=== PATIENT | female | born 1975 | race American Indian/Alaskan Native ===

== ENCOUNTER 2017-12-22 16:33 | Emergency (ER) | payer MEDICAID, OTHER ==
[2017-12-22 17:01] VITALS: RESP 18; TEMP 98.7; O2SAT 99; BMI 32.9
[2017-12-22] MEDS ORDERED: Oxycodone/Acetaminophen 5/325 mg Tab PO STA (17:42)
--- NOTE | 2017-12-22 17:49 | ED PDOC ---
Arrival/HPI - General Chief Complaint: Dental Pain Time Seen by Provider: 12/22/17 17:38 Historian: Patient - History of Present Illness Narrative History of Present Illness (Text): 12/22/17 17:45 Estefani Churchill is a 42 year old male, whose past medical history includes heavy smoking, poor dentitions, who presents to the Emergency department complaining of progressive right upper tooth pain radiating to the right ear over the last 3 days. Patient notes facial swelling over the last 24 hours with severe right dental pain/face pain. Patient states she tried taking Aleve, Motrin, and Tylenol with minimal relief. Patient took her girlfriend's percocet and found some relief. Patient has an appointment with a dentist soon but hasn't had a chance to go, will go as soon as she can (due to her lack of insurance). Patient denies any fevers, chills, sweats, chest pain, shortness of breath, abdominal pain, nausea, vomiting, diarrhea, back pain, neck pain, headache, dizziness, or any other complaint. pt is here for further eval pt's without other complaints PCP: Asha Time/Duration: < week (3 days) Symptom Onset: Gradual Symptom Course: Worsening Quality: Aching, Stabbing, Cramping, Throbbing Severity Level: 10, Severe Activities at Onset: Light Context: Home Past Medical History - Provider Review Nursing Documentation Reviewed: Yes - Travel History Have you recently traveled outside [place] w/in the past 3 mons?: No - Past History Past History: No Previous - Infectious Disease Hx of Infectious Diseases: None - Tetanus Immunization Tetanus Immunization: Unknown - Reproductive Menopause: No Currently : Unknown - Neurological Hx Neurological Disorder: Yes Hx Migraine: Yes - Hematological/Oncological Hx Blood Disorders: Yes Hx Anemia: Yes - Musculoskeletal/Rheumatological Hx Falls: No - Genitourinary/Gynecological Hx Genitourinary Disorders: Yes Other/Comment: UTERINE FIBROID - Psychiatric Hx Emotional Abuse: No Hx Physical Abuse: No Hx Substance Use: No - Past Surgical History Past Surgical History: No Previous - Surgical History Hx Tubal Ligation: Yes Other/Comment: fibroid - Anesthesia Hx Anesthesia: No - Suicidal Assessment Feels Threatened In Home Enviroment: No Family/Social History - Physician Review Nursing Documentation Reviewed: Yes Family/Social History: Unknown Family HX Smoking Status: Heavy Smoker > 10 Cigarettes Daily Hx Alcohol Use: Yes Frequency of alcohol use: Socially Hx Substance Use: No Hx Substance Use Treatment: No Allergies/Home Meds Allergies/Adverse Reactions: Allergies tramadol Allergy (Verified 12/22/17 16:59) ITCHING Review of Systems - Physician Review All systems were reviewed & negative as marked: Yes - Review of Systems Constitutional: Normal Eyes: Normal ENT: Normal, Other (Right upper tooth pain). absent: Voice Changes Respiratory: Normal. absent: SOB, Cough Cardiovascular: Normal. absent: Chest Pain Gastrointestinal: Normal. absent: Abdominal Pain, Diarrhea, Nausea, Vomiting Genitourinary Female: Normal. absent: Dysuria, Frequency, Hematuria Musculoskeletal: Normal. absent: Back Pain, Neck Pain Skin: Normal. absent: Rash Neurological: Normal. absent: Headache, Dizziness Endocrine: Normal Hemo/Lymphatic: Normal Psychiatric: Normal Physical Exam Vital Signs Reviewed: Yes Vital Signs Temp Pulse Resp BP Pulse Ox 12/22/17 18:37 86 18 140/79 99 12/22/17 17:00 98.7 F 85 18 156/87 H 99 Temperature: Afebrile Blood Pressure: Hypertensive Pulse: Regular Respiratory Rate: Normal Appearance: Positive for: Well-Appearing, Non-Toxic, Uncomfortable, Other (alert /awake, uncomfortable, moderate distress due to pain, resting in bed, GCS = 15, oriented x 3, cooperative/follows command with ease) Pain Distress: Moderate Mental Status: Positive for: Alert and Oriented X 3 - Systems Exam Head: Present: Atraumatic, Normocephalic Pupils: Present: PERRL, Other (no nystagmus, no photophobia, sclera anicteric, visual field intact b/l) Extroacular Muscles: Present: EOMI Conjunctiva: Present: Normal Ears: Present: Normal Mouth: Present: Other (poor dentitions, missing teeth noted throughout upper/ lower jaw; noted right upper lateral gum region swelling, dental #3 with severe dental caries/tenderness on exam, no laxity, + swelling/slight fluctuance noted , no dischrage/discoloration, no gross bleeding, no fetid odor, no drooling/ stridor, uvula/tongue are midline, no dysphonia) Pharnyx: Present: Normal. No: Peritonsilar Swelling, Uvular Deviation Nose (External): Present: Atraumatic Nose (Internal): Present: Normal Inspection Neck: Present: Normal Range of Motion, Trachea Midline, Other (intact ROM, no nuchal rigidity, no step off). No: Meningeal Signs, MIDLINE TENDERNESS, Paraspinal Tenderness Respiratory/Chest: Present: Clear to Auscultation, Good Air Exchange. No: Respiratory Distress, Accessory Muscle Use Cardiovascular: Present: Regular Rate and Rhythm, Normal S1, S2. No: Murmurs Abdomen: Present: Normal Bowel Sounds, Other (well nourished female, no focal tenderness, no kirkpatrick's sign, no mcburneys' point tenderness; no masses/rebound/ guarding/rigidity). No: Tenderness, Distention, Peritoneal Signs Back: Present: Normal Inspection. No: CVA Tenderness, Midline Tenderness Upper Extremity: Present: Normal Inspection, Normal ROM, NORMAL PULSES, Neurovascularly Intact, Capillary Refill < 2s. No: Cyanosis, Edema Lower Extremity: Present: Normal Inspection, NORMAL PULSES, Normal ROM, Neurovascularly Intact. No: Edema, Deformity Neurological: Present: GCS=15, CN II-XII Intact, Speech Normal Skin: Present: Warm, Dry, Normal Color, Other (cap refill < 1sec, no ulcerations , no petechiae, no rashes/lesions). No: Rashes Psychiatric: Present: Alert, Oriented x 3, Normal Insight, Normal Concentration Medical Decision Making ED Course and Treatment: 12/22/17 17:51 Impression: dental pain/abscess/caries 42 year old female who presents to the Emergency department complaining of right upper tooth pain that radiates to the right ear. Plan: dental pain/abscess/caries -- Toradol -- Lidocaine -- Oxycodone -- Penicillin -- POC Urine Test -- Reassess and disposition Progress Notes: pt is much improved pt is feeling better 12/22/17 18:21 pt remained comfortable, pt states her pain is now 6-7/10 pt is made aware of her medical results pt is encouraged no smoking pt is encouraged eating/chewing on the opposite side of her pain pt is encouraged eating soft/liquid-like foods pt is encouraged outpt f/u (dental follow up this week) pt will be discharged home Re-evaluation Time: 18:15 Reassessment Condition: Improving,but remains with symptoms - Medication Orders Current Medication Orders: Discontinued Medications Ketorolac Tromethamine (Toradol) 30 mg IM STAT STA Stop: 12/22/17 17:42 Last Admin: 12/22/17 17:51 Dose: 30 mg MAR Pain Assessment Document 12/22/17 17:51 [facility] (Rec: 12/22/17 17:52 [facility] [id number]) Pain Reassessment Is this a pain reassessment? No Sleep Is patient sleeping during reassessment? No Presence of Pain Presence of Pain Yes Pain Scale Used Pain Scale Used Numeric Description Intensity of Pain at present 9 IM Administration Charges Document 12/22/17 17:51 [facility] (Rec: 12/22/17 17:52 [facility] [id number]) Charges for Administration # of IM Administrations 1 Lidocaine HCl (Lidocaine 2% Viscous) 15 ml MM STAT STA Stop: 12/22/17 17:43 Last Admin: 12/22/17 17:51 Dose: 15 ml Oxycodone/Acetaminophen (Percocet 5/325 Mg Tab) 1 tab PO STAT STA Stop: 12/22/17 17:43 Last Admin: 12/22/17 17:52 Dose: 1 tab MAR Pain Assessment Document 12/22/17 17:52 [facility] (Rec: 12/22/17 17:52 [facility] [id number]) Pain Reassessment Is this a pain reassessment? No Sleep Is patient sleeping during reassessment? No Presence of Pain Presence of Pain Yes Pain Scale Used Pain Scale Used Numeric Description Description Constant Intensity of Pain at present 9 Penicillin V Potassium (Penicillin Vk Tab) 500 mg PO STAT STA PRN Reason: Protocol Stop: 12/22/17 17:39 Last Admin: 12/22/17 17:52 Dose: 500 mg - Estelleibe Statement The provider has reviewed the documentation as recorded by the Hung Palacio All medical record entries made by the Hung were at my direction and personally dictated by me. I have reviewed the chart and agree that the record accurately reflects my personal performance of the history, physical exam, medical decision making, and the department course for this patient. I have also personally directed, reviewed, and agree with the discharge instructions and disposition. Disposition/Present on Arrival - Present on Arrival Any Indicators Present on Arrival: No History of DVT/PE: No History of Uncontrolled Diabetes: No Urinary Catheter: No History of Decub. Ulcer: No History Surgical Site Infection Following: None - Disposition Have Diagnosis and Disposition been Completed?: Yes Diagnosis: Pain, dental, Dental abscess, Dental caries Disposition: HOME/ ROUTINE Disposition Time: 18:15 Patient Plan: Discharge Condition: STABLE Discharge Instructions (ExitCare): Tooth Decay, Adult, Tooth Abscess (DC), Dental Pain (DC) Print Language: KOREAN Additional Instructions: Make sure to see your doctor in 1-2 days The Department of Dental Medicine treats all age groups from through geriatrics. Hours of Operation Saturday - Saturday 8:00 AM - 5:00 PM [facility] [address] [place] [address] YOU NEED TO GO TO THE DENTAL CLINIC as instructed THIS WEEK DRINK PLENTY OF FLUIDS BLAND DIET is encouraged, chew on the left side (away from the infection/pain) STOP SMOKING take your medications as prescribed RETURN TO ED IF worse pain, cant breath, persistent vomiting, high fever >101- 102 for hours, altered behavior, slurr speech, facial changes, focal weakness ( arm/leg or both), unable to urinate, heavy/persistent bleeding, passing out, chest pain, or other medical emergencies Prescriptions: Ibuprofen [Motrin] 600 mg PO QID PRN #30 tab PRN Reason: Pain, Mild (1-3) Lidocaine 2% Viscous 10 ml MM QID PRN #100 ml PRN Reason: Pain, Mild (1-3) oxyCODONE/Acetaminophen [Percocet 5/325 mg Tab] 1 tab PO TID PRN #12 tab PRN Reason: Pain, Moderate (4-7) Penicillin VK [Pen-Vee K] 500 mg PO QID #39 tab Referrals: Jenniffer Barry MD [Primary Care Provider] - Follow up with primary [facility] [Outside] - Follow up with primary Forms: [employer] (Belarusian)
[2017-12-22 18:38] VITALS: BP 140/79; PULSE 86
== END 2017-12-22 18:40 | disposition home or self-care (01) ==
LOC: ED 16:33
DX: K04.7 Periapical abscess without sinus (principal); K02.9 Dental caries, unspecified; K08.89 Other specified disorders of teeth and supporting structures; F17.210 Nicotine dependence, cigarettes, uncomplicated
CPT/HCPCS: 96372; 99283; J1885

== ENCOUNTER 2019-01-12 18:27 | Emergency (ER) | payer OTHER, MEDICAID | END 2019-01-12 20:18 | disposition home or self-care (01) | LOC: ED 18:27 ==